=== PATIENT | male | born 1955 | race Caucasian/White ===

== ENCOUNTER 2018-07-24 09:02 | Day surgery (SDC) | payer OTHER, BC ==
[~2018-07-24 09:02] MED LIST: Albuterol 0.083% 2.5 MG/3 ML Neb Soln NEB ONE; Lactated Ringers 1,000 ML IV SCH; Lidocaine 1%/Sod Bicarbonate in NS 8.4% 1 ML Syringe IDERM PRN; Sodium Chloride 0.9% 10 ML Syringe FLUSH PRN
--- NOTE | 2018-07-24 10:37 | PCM.PREANE ---
Preanesthetic Assessment - Procedure Proposed Procedure: ORIF Right Bimalleolar Equivalent Fx with synclosmosis - Anesthesia/Transfusion/Family Hx Anesthesia History: Prior Anesthesia Without Reaction Family History of Anesthesia Reaction: No Transfusion History: No Prior Transfusion(s) Intubation History: Unknown - Review of Systems General: No Symptoms Pulmonary: Cough (quit smoking Jul 12 ) Cardiovascular: No Symptoms Gastrointestinal: No Symptoms Neurological: No Symptoms Other: Reports: None - Physical Assessment NPO Status Date: 07/23/18 NPO Status Time: 22:00 O2 Sat by Pulse Oximetry: 96 Respiratory Rate: 16 Vital Signs: Last Vital Signs Temp 36.6 C 07/24/18 09:35 Pulse 66 07/24/18 09:35 Resp 16 07/24/18 09:35 BP 142/92 H 07/24/18 09:35 Pulse Ox 96 07/24/18 09:41 ASA Class: 2 Mental Status: Alert & Oriented x3 Airway Class: Mallampati = 2 Dentition: Reports: Normal Dentition Thyro-Mental Finger Breadths: 2 Mouth Opening Finger Breadths: 4 Lungs: Clear to Auscultation, Normal Respiratory Effort Cardiovascular: Regular Rate, Regular Rhythm - Lab Values: Laboratory Last Values MRSA (PCR) Negative 07/20/18 09:50 - Allergies Allergies/Adverse Reactions: Allergies Allergy/AdvReac Type Severity Reaction Status Date / Time No Known Allergies Allergy Verified 07/21/18 14:52 - Blood Blood Available: No - Anesthesia Plan Pre-Op Medication Ordered: None - Acknowledgements Anesthesia Type Planned: General Anesthesia Pt an Appropriate Candidate for the Planned Anesthesia: Yes Alternatives and Risks of Anesthesia Discussed w Pt/Guardian: Yes Pt/Guardian Understands and Agrees with Anesthesia Plan: Yes PreAnesthesia Questionnaire - Past Health History Medical/Surgical History: Denies Medical/Surgical History HEENT History: Reports: Impaired Vision Cardiovascular History: Reports: None Respiratory History: Reports: Sleep Apnea Gastrointestinal History: Reports: None Genitourinary History: Reports: None 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 Musculoskeletal History: Reports: Back Pain, Chronic Neurological History: Reports: None Psychiatric History: Reports: None Endocrine/Metabolic History: Reports: None Hematologic History: Reports: None Immunologic History: Reports: None Oncologic (Cancer) History: Reports: None Dermatologic History: Reports: None - Past Surgical History Head Surgeries/Procedures: Reports: None Cardiovascular Surgical History: Reports: None Respiratory Surgical History: Reports: None GI Surgical History: Reports: None Female Surgical History: Reports: None Male Surgical History: Reports: None Endocrine Surgical History: Reports: None Neurological Surgical History: Reports: None Other Musculoskeletal Surgeries/Procedures:: hasnt had problems for past 20 plus years Oncologic Surgical History: Reports: None Dermatological Surgical History: Reports: None - SUBSTANCE USE Smoking Status *Q: Current Every Day Smoker Recreational Drug Use History: No - HOME MEDS Home Medications: Home Meds Acetaminophen/HYDROcodone [[place] 325-5 MG] 1 - 2 tab PO Q6H PRN #40 tablet 07/24 [Rx] Aspirin 325 mg PO BID #84 tab 07/24/18 [Rx] Cyclobenzaprine HCl 10 mg PO ASDIRECTED PRN 07/24/18 [History] traMADol HCl [Tramadol HCl] 50 mg PO ASDIRECTED PRN 07/24/18 [History] - CURRENT (IN HOUSE) MEDS Current Meds: Current Medications Lactated Ringer's (Ringers, Lactated) 1,000 mls @ 125 mls/hr IV ASDIRECTED LISE Stop: 07/24/18 23:00 Lidocaine/Sodium Bicarbonate (Buffered Lidocaine 1% In Ns 8.4%) 0.25 ml IDERM ONETIME PRN PRN Reason: Prior to IV Start Stop: 07/24/18 18:00 Sodium Chloride (Saline Flush) 10 ml FLUSH ASDIRECTED PRN PRN Reason: Keep Vein Open Stop: 07/24/18 18:00 Discontinued Medications Albuterol (Proventil Neb Soln) 2.5 mg NEB ONETIME ONE Stop: 07/24/18 08:01 Last Admin: 07/24/18 09:40 Dose: 2.5 mg
[2018-07-24] MEDS ORDERED: fentaNYL 100 MCG/2 ML SDV IVPUSH PRN (10:39)
[2018-07-24] MEDS ORDERED: diphenhydrAMINE 50 MG/ML SDV IVPUSH PRN (10:39)
[2018-07-24] MEDS ORDERED: Ondansetron 4 MG/2 ML SDV IVPUSH PRN (10:39)
[2018-07-24] MEDS ORDERED: Bupivacaine 0.25% 30 ML SDV ONE (10:39)
[2018-07-24] MEDS ORDERED: HYDROmorphone 0.5 MG/0.5 ML Syringe IVPUSH PRN (10:40)
[2018-07-24] MEDS ORDERED: Propofol 200 MG/20 ML SDV ONE (10:49)
[2018-07-24] MEDS ORDERED: Midazolam 1 MG/ML 2 ML SDV ONE (10:49)
[2018-07-24] MEDS ORDERED: fentaNYL 100 MCG/2 ML SDV ONE (10:49)
[2018-07-24] MEDS ORDERED: Lidocaine 1% 4 ML ONE (10:51)
[2018-07-24] MEDS ORDERED: ceFAZolin 1 GM Vial ONE (10:53)
[2018-07-24] MEDS ORDERED: HYDROmorphone 0.5 MG/0.5 ML Syringe ONE ×3 (12:04→12:08)
[2018-07-24] MEDS ORDERED: Dexamethasone 4 MG/ML 5 ML MDV ONE ×2 (12:07→12:08)
[2018-07-24] MEDS ORDERED: Ketorolac 30 MG/ML SDV ONE (12:08)
[2018-07-24] MEDS ORDERED: Ondansetron 4 MG/2 ML SDV ONE (12:08)
[2018-07-24] MEDS ORDERED: Ketamine 500 mg/10 ML MDV ONE (12:26)
--- NOTE | 2018-07-24 13:12 | PCM.OPNOTE ---
- General Post-Op/Procedure Note Date of Surgery/Procedure: 07/24/18 Operative Procedure(s): open reduction internal fixation or right bimalleolar equivalent ankle fracture with syndesmotic fixation Pre Op Diagnosis: right bimalleolar equivalent ankle fracture with syndesmosis disruption Post-Op Diagnosis: Same Anesthesia Technique: General LMA, Local Primary Surgeon: Honorio De Paz Anesthesia Provider: Naa Lord Rn Outpatient Surgery: Lien Babb in mLs: 10 Complications: None Condition: Good
--- NOTE | 2018-07-24 13:32 | PCM.POSTAN ---
POST ANESTHESIA ASSESSMENT - MENTAL STATUS Mental Status: Alert - VITAL SIGNS Pulse Rate: 71 SaO2: 100 Resp Rate: 10 Blood Pressure: 156/98 Temperature: 36.1 C - RESPIRATORY Respiratory Status: Respiratory Rate WNL, Airway Patent, O2 Saturation Stable, Supplemental Oxygen - CARDIOVASCULAR CV Status: Pulse Rate WNL, Blood Pressure Stable - GASTROINTESTINAL GI Status: No Symptoms - PAIN Pain Score: 0 - POST OP HYDRATION Hydration Status: Adequate & Stable
--- NOTE | 2018-07-24 13:34 | CR ---
Right ankle: Five fluoroscopic spot views were obtained of the right ankle utilizing C-arm device. Comparison: Prior right ankle exam of 07/12/18. Plate and screws are noted within the distal fibula affixing previous lateral malleolar fracture. Ankle mortise is symmetric. Two screws affix the distal fibula to the tibia. Fluoroscopy time is given as 13.7 seconds. Impression: 1. Procedural study as noted above. Diagnostic code #2
--- NOTE | 2018-07-24 13:47 | OR ---
DATE OF OPERATION: 07/24/2018 SURGEON: Honorio De Paz MD OPERATION PERFORMED: Open reduction and internal fixation of right bimalleolar equivalent ankle fracture with syndesmotic fixation. PREOPERATIVE DIAGNOSIS: Right bimalleolar equivalent ankle fracture with syndesmotic disruption. POSTOPERATIVE DIAGNOSIS: Right bimalleolar equivalent ankle fracture with syndesmotic disruption. ANESTHESIA: General LMA with local. ANESTHESIA PROVIDER: Naa Lord. SOLDERER: Lien Babb PA-C. ESTIMATED BLOOD LOSS: 10 mL. COMPLICATIONS: None. CONDITION: Stable. DESCRIPTION OF PROCEDURE: The patient was identified in the preop holding area. Proper site was marked and identified by the surgeon. The patient was taken back to the operating theater where after adequate anesthesia, the patient's right lower extremity had a nonsterile tourniquet applied and it was then sterilely prepped and draped in the usual sterile fashion. OR time-out was performed. The patient received 2 g IV Ancef. At this time, right lower extremity was exsanguinated and tourniquet was insufflated to 250 mmHg. Standard incision was made and centered over the lateral malleolus. This was taken down to the fracture site which was curetted and rongeured of all fracture hematoma. Irrigation was then irrigated through the fracture site. A lobster claw as well as [id number] reduction clamp was then used for anatomic reduction under direct visualization. At this time, a [place] 3-hole lateral distal fibular locking plate was then placed, and this was found to be in adequate position. At this time, a non-locking cortical screw was placed distal to the fracture site, and then a nonlocking cortical screw was placed proximally. Next, 2 more additional screws were placed distally to the fracture site which were both locking. At this time, 1 more nonlocking screw was placed proximally. The [id number] reduction clamp was then taken off, where it was found to have adequate fixation of the fracture site, but the patient was noted to have syndesmotic disruption, so at this time, drill holes were placed tricortically for two 3.5 mm cortical screws in a tricortical fashion. At this time, reduction of the syndesmosis was done and the patient was noted to have good fixation of the syndesmosis in tricortical technique. Stress view was then undertaken showing no signs of medial clear space opening. AP and lateral views also showed reduction of the fibular length and was in near anatomic. At this time, adequate saline was irrigated through the wound. 2-0 Vicryl was used subcutaneously. Piru were used for the skin. The patient was placed in a sterile soft dressing and posterior slab splint and sent to the PACU in stable condition. HANSA /[id number]
[2018-07-24] MEDS ORDERED: hydrALAZINE 20 MG/ML SDV IVPUSH ONE (14:28)
[2018-07-24] MEDS ORDERED: Labetalol 100 MG/20 ML MDV IVPUSH ONE (14:28)
--- NOTE | 2018-07-24 16:20 | PCM48HPAN ---
Post Anesthesia Note - EVALUATION WITHIN 48HRS OF ANESTHETIC Vital Signs in Normal Range: Yes Patient Participated in Evaluation: Yes Respiratory Function Stable: Yes Airway Patent: Yes Cardiovascular Function Stable: Yes Hydration Status Stable: Yes Pain Control Satisfactory: Yes Nausea and Vomiting Control Satisfactory: Yes Mental Status Recovered: Yes Pulse Rate: 71 SaO2: 99 Resp Rate: 16 Temperature: 36.1 C Blood Pressure: 156/98
== END 2018-07-24 18:20 | disposition home or self-care (01) ==
LOC: JD.SDS 09:02
PROVIDERS: ATTEND Orthopaedic Surgery
DX: S82.841A Displaced bimalleolar fracture of right lower leg, initial encounter for closed fracture (principal); S93.431A Sprain of tibiofibular ligament of right ankle, initial encounter; Z87.891 Personal history of nicotine dependence; Z79.899 Other long term (current) drug therapy; W00.0XXA Fall on same level due to ice and snow, initial encounter
CPT/HCPCS: 27814; 27829; 36415; 76000; 80048; 87641; 93005; 94640; C1713; C1776; J0360; J0690; J1100; J1170; J1885; J2001; J2250; J2405; J2704; J3010; J3490; J7120; 01480